=== PATIENT | female | born 1965 | race Caucasian/White ===

== ENCOUNTER → 2018-10-07 | Outpatient (CLI) | payer OTHER ==
--- NOTE | 2018-10-07 15:33 | RADRPT ---
PROCEDURE: Left knee radiographs. CLINICAL INDICATION: Left knee pain. TECHNIQUE: Four views. Weight bearing. Frontal, lateral, oblique, and patellar view. COMPARISON: No prior studies are available for comparison. FINDINGS: There is no fracture or dislocation. The soft tissues are normal. Articular surfaces are intact. There is no lytic or blastic lesion. There is no radiopaque foreign body. IMPRESSION: 1. Normal images of the left knee. RPTAT: QQ .Gabriel Garcia MD, MD Date Time Electronically viewed and signed by .Gabriel Garcia MD, MD on 10/07/2018 15:33 .R/
--- NOTE | 2018-10-07 18:25 | HKNOTE ---
DATE OF SERVICE: HISTORY OF PRESENT ILLNESS: Ms. Noble A 53-year-old female complaining of left knee pain. The pain is chronic. She denies any locking, catching or instability. She denies any hip pain. She also has a history of back pain. She has seen pain management. She is able to ambulate without use of izabella tive devices. PAST MEDICAL HISTORY: Eczema. MEDICATIONS: None. PAST SURGICAL HISTORY: None. SOCIAL HISTORY: Denies tobacco or alcohol use. ALLERGIES: CODEINE. PHYSICAL EXAMINATION: GAIT: Nonantalgic gait, reciprocal gait pattern. LEFT KNEE: Neutral alignment, tender over the lateral joint line, 0 to 120 degrees range of motion, stable to varus valgus stress, negative Todd, negative anterior drawer, negative posterior drawer, negative Baltazar. 5/5 quadriceps, tibialis anterior, gastric soleus. X-RAYS LEFT KNEE: Three views of the left knee taken in the office demonstrate no fractures or dislo cations. IMPRESSION: A 53-year-old female with left knee strain. PLAN: We will request authorization for MRI of the left knee. She was instructed on home exercises. She will follow up in six weeks to go over the results. Dictated By: FIORELLA EAST/ZBIGNIEW Conf#: [id number] DID#: [id number]
== END | disposition home or self-care (01) ==
LOC: HKI 14:36
PROVIDERS: ATTEND Orthopaedic Surgery Adult Reconstructive Orthopaedic Surgery
DX: S86.912D Strain of unspecified muscle(s) and tendon(s) at lower leg level, left leg, subsequent encounter (principal); X58.XXXD Exposure to other specified factors, subsequent encounter
CPT/HCPCS: 73564; Z7500; G0463

== ENCOUNTER → 2018-12-02 | Outpatient (CLI) | payer OTHER ==
--- NOTE | 2018-12-02 16:13 | HKNOTE ---
DATE OF SERVICE: 12/02/2018 CHIEF COMPLAINT: Left knee pain. HISTORY OF PRESENT ILLNESS: Ms. Noble is here to go over her MRI results. She complains of severe pain in the left knee. She has difficulty ambulating. LEFT KNEE EXAMINATION: Neutral alignment. Tender over the lateral joint line, 0 to 120 degree range of motion, stable to varus valgus stress, negative Todd, negative anterior drawer, negative posterior drawer, negative Baltazar, 5/5 strength to quadriceps, tibialis anterior, gastrocsoleus. IMAGING: MRI left knee. No meniscal or ligamentous tear is seen. There is chondral loss of the lateral tibial plateau. No focal osteochondral lesion is seen. DIAGNOSIS: A 53-year-old female with left knee chondromalacia lateral compartment. PLAN: I discussed treatment options with the patient. The patient would like cartilage transplant. I explained to the patient that the MRI findings do not support this treatment. She requested a second opinion. We will request authorization for referral to Dr. Mauricio Leon at [facility] [place]. She will follow up with me as needed. Dictated By: FIORELLA EAST/ZBIGNIEW Conf#: [id number] DID#: [id number] MTDDeyanira
== END | disposition home or self-care (01) ==
LOC: HKI 13:47
PROVIDERS: ATTEND Orthopaedic Surgery Adult Reconstructive Orthopaedic Surgery
DX: M94.262 Chondromalacia, left knee (principal)
CPT/HCPCS: G0463

== ENCOUNTER 2019-03-17 09:39 | Day surgery (SDC) | payer OTHER ==
[~2019-03-17] VITALS: Ht 165.1 cm; Wt 62.3 kg
[2019-03-17] VITALS (7 sets, daily range): BP systolic 91–116; BP diastolic 64–74; PULSE 54–74; RESP 16–20; Ht 165.1 cm; Wt 62.3 kg
[2019-03-17] MEDS ORDERED: NO MEDS (10:43)
--- NOTE | 2019-03-17 11:04 | HPN ---
Date/Time of Note Date/Time of Note DATE: 03/17/19 TIME: 11:04 Interval H&P Admission Note Pt. seen H&P reviewed: No system changes WILFREDO GALVIN M.D. Mar 17, 2019 11:04
--- NOTE | 2019-03-17 11:08 | HP ---
Date/Time of Note Date/Time of Note DATE: 03/17/19 TIME: 11:05 Assessment/Plan VTE Prophylaxis SCD applied (from Ns): No SCD contraindicated: low risk/ambulating Pharmacological prophylaxis: NA/contraindicated Pharm contraindication: low risk/ambulating Assessment/Plan Assessment/Plan 53YO Woman came to office for perianal tag. Reports never having colonoscopy. Discussed risks and benefits of colonoscopy including bleeding, infection, damage to surrounding structures, perforation. Pt agreeable, here for colonoscopy todayl HPI/ROS Admit Date/Time Admit Date/Time ROS Constitutional: no complaints Respiratory: no complaints Cardiovascular: no complaints Gastrointestinal: no complaints PMH/Family/Social Past Medical History Medical History: no pertinent history Coded Allergies: codeine (Verified Allergy, Unknown, 03/17/19) Past Surgical History Past Surgical Hx: noncontributory Social History Alcohol Use: none Smoking Status: Former smoker Exam/Review of Systems Exam Psych: no complaints Head: normocephalic Respiratory: clear to auscultation Cardiovascular: regular rate and rhythm WILFREDO GALVIN M.D. Mar 17, 2019 11:08
--- NOTE | 2019-03-17 11:48 | SIPON ---
Date/Time of Note Date/Time of Note DATE: 03/17/19 TIME: 11:47 Operative Report Preoperative Diagnosis Screening colon Postoperative Diagnosis Normal colon, suboptimal prep Operation/Procedure Performed Colonoscopy Surgeon see signature line stylist assistant none Anesthesia: MAC Estimated blood loss: none Transfusion Required none Specimen none Grafts/Implants none Complications none WILFREDO GALVIN M.D. Mar 17, 2019 11:48
--- NOTE | 2019-03-17 11:58 | PREAC ---
Date/Time of Note Date/Time of Note DATE: 03/17/19 TIME: 11:58 Anesthesia Eval and Record Evaluation Time Pre-Procedure Interview DATE: 03/17/19 TIME: 11:58 Age 54 Sex female NPO: 8 hrs Preoperative diagnosis screening Planned procedure colonoscopy Past Medical History Past Medical History: None Surgery & Anesthesia Issues No known issue Meds Anticoagulation: No Beta Ezequiel within 24 hr: No Reason Beta Ezequiel not given: Pt. not on B-Ezequiel Reported Medications [No Meds] No Conflict Check 03/17/19 Meds reviewed: Yes Allergies Coded Allergies: codeine (Verified Allergy, Unknown, 03/17/19) Allergies Reviewed: Yes Labs/Studies Labs Reviewed: Reviewed by anesthesiologist test: Negative Pre-procedure Exam Last vitals Vital Signs Date Temp Pulse Resp B/P (MAP) Pulse Ox O2 O2 Flow FiO2 Time Delivery Rate 03/17/19 97.8 60 16 116/69 99 Room Air 11:08 (85) Airway: Adequate mouth opening, Adequate thyromental dist Mallampati: Mallampati II Teeth: Normal Lung: Normal Heart: Normal ASA Physical Status ASA physical status: 1 Emergency: None Pre-operative Attestations Prior to commencing anesthesia and surgery, the patient was re-evaluated, there was verification of: *The patient's identity *The results of appropriate recent lab work and preoperative vital signs *The above evaluation not changing prior to induction *Anesthetic plan, risk benefits, alternative and complications discussed with patient/family; questions answered; patient/family understands, accepts and wishes to proceed. ARACELI MANCINI DO Mar 17, 2019 11:58
--- NOTE | 2019-03-17 11:59 | PAC ---
Date/Time of Note Date/Time of Note DATE: 03/17/19 TIME: 11:58 Post-Anesthesia Notes Post-Anesthesia Note Last documented vital signs Vital Signs Date Temp Pulse Resp B/P (MAP) Pulse Ox O2 O2 Flow FiO2 Time Delivery Rate 03/17/19 98 65 16 110/52 99 Room Air 1200 Activity: WNL Respiratory function: WNL Cardiovascular function: WNL Mental status: Baseline Pain reasonably controlled: Yes Hydration appropriate: Yes Nausea/Vomiting absent: Yes ARACELI MANCINI DO Mar 17, 2019 11:59
--- NOTE | 2019-03-17 12:55 | OPR ---
DATE OF OPERATION: 03/17/2019 TITLE OF OPERATION: Colonoscopy. PREOPERATIVE DIAGNOSIS: Need for screening colonoscopy. POSTOPERATIVE DIAGNOSES: 1. Mild diverticulosis. 2. Suboptimal prep. SURGEON: Wilfredo Bowers MD ANESTHESIA: MAC. POSITION: Left lateral decubitus. FINDINGS: 1. Mild diverticulosis of the left colon. 2. Suboptimal prep. INDICATIONS: A 54-year-old woman who did come to see me for perianal issues. The patient reports sh e never had a colonoscopy. I discussed the risks and benefits of screening colonoscopy including ble eding, infection, damage to surrounding structures, perforation. The patient was agreeable, got preo p labs and we followed up in the GI suite. DESCRIPTION OF PROCEDURE: After obtaining consent, the patient was brought to the GI suite. After i nduction of anesthesia, the patient was gently placed in left lateral decubitus position. The pressu re points carefully padded. I did a digital rectal examination and was only remarkable for some soft perianal tags. I then placed a lubricated Olympus colonoscope in the patient's anus and navigated t o the cecum. The cecum was identified by the appendiceal orifice and the ileocecal valve. I then re tracted the scope the entirety of the colon. The prep was suboptimal. I could see most of it, but t here were portions obscured by stool. I did not see any pathology except for some diverticula in the left colon. The scope was then removed and the procedure was terminated. The patient tolerated the procedure well. The patient was transported to the PACU in good condition. While I did not see any obvious pathology, I think the patient needs a repeat colonoscopy. I will see her in about 6 months for this. Dictated By: WILFREDO SARMIENTO/NTS Conf#: [id number] DID#: [id number] CC: KINGSLEY GOMEZ MD;*EndCC*
== END 2019-03-17 12:45 | disposition home or self-care (01) ==
LOC: GIL 09:39
PROVIDERS: ATTEND Surgery
DX: Z12.11 Encounter for screening for malignant neoplasm of colon (principal); K57.30 Diverticulosis of large intestine without perforation or abscess without bleeding
CPT/HCPCS: 84703